=== PATIENT | male | born 1990 | race African-American/Black ===

== ENCOUNTER 2021-06-27 08:59 | Emergency (ER) | payer MEDICAID ==
[~2021-06-27] VITALS: Ht 175.3 cm; Wt 79.5 kg
[2021-06-27 09:18] VITALS: BP 154/89
== END 2021-06-27 10:37 | disposition home or self-care (01) ==
LOC: EMS 08:59
DX: S62.314A Displaced fracture of base of fourth metacarpal bone, right hand, initial encounter for closed fracture (principal); Y04.0XXA Assault by unarmed brawl or fight, initial encounter; Y93.89 Activity, other specified; Y92.89 Other specified places as the place of occurrence of the external cause; Y99.8 Other external cause status
CPT/HCPCS: 99283

== ENCOUNTER 2024-03-07 11:48 | Emergency (ER) | payer MEDICAID ==
[~2024-03-07] VITALS: Ht 172.7 cm; Wt 79.5 kg
[2024-03-07 11:50] VITALS: TEMP 98.3
[2024-03-07] MEDS: IBUPROFEN 600 MG TABLET PO ONE (13:46)
[2024-03-07] MEDS ORDERED: METH-659 PO (14:20)
[2024-03-07] MEDS ORDERED: IBUP-1554 PO (14:20)
[2024-03-07] MEDS ORDERED: HYDR-4062 PO (14:20)
[2024-03-07] MEDS: METHOCARBAMOL 500 MG TABLET PO ONE (14:31)
[2024-03-07 14:38] VITALS: BP 121/68; PULSE 71; RESP 16
== END 2024-03-07 14:38 | disposition home or self-care (01) ==
LOC: EMS 11:48
DX: S39.012A Strain of muscle, fascia and tendon of lower back, initial encounter (principal); S30.0XXA Contusion of lower back and pelvis, initial encounter; J45.909 Unspecified asthma, uncomplicated; F17.210 Nicotine dependence, cigarettes, uncomplicated; V89.2XXA Person injured in unspecified motor-vehicle accident, traffic, initial encounter; Y93.89 Activity, other specified; Y92.89 Other specified places as the place of occurrence of the external cause; Y99.8 Other external cause status
CPT/HCPCS: 72070; 72100; 99284; Z7502; Z7610

== ENCOUNTER → 2024-05-29 | Emergency (ER) | payer MEDICAID ==
[~2024-05-29] VITALS: Ht 172.7 cm; Wt 79.5 kg
[~2024-05-29] MED LIST: HYDR-4062 PO; IBUP-1554 PO; METH-659 PO
[2024-05-29 22:35] VITALS: BP 126/98; PULSE 60; RESP 16; TEMP 98.9
[2024-05-29 23:21] LABS: BASOPHILS % (AUTO) 0.5 % (0.0-2.0); EOSINOPHILS % (AUTO) 1.4 % (1.0-6.0); HEMOGLOBIN 15.4 g/dL (13.5-17.5); LYMPHOCYTES # (AUTO) 2.3 K/uL (1.0-4.8); LYMPHOCYTES % (AUTO) 28.3 % (22.0-44.0); MEAN CORPUSCULAR HEMOGLOBIN 28.4 pg (26.0-34.0); MEAN CORPUSCULAR HGB CONC 32.7 G/dL (31.0-37.0); MEAN CORPUSCULAR VOLUME 87 fL (80-100); MONOCYTES # (AUTO) 0.4 K/uL (0.1-1.0); MONOCYTES % (AUTO) 4.6 % (2.0-9.0); NEUTROPHILS # (AUTO) 5.2 K/uL (1.8-7.7); NEUTROPHILS % (AUTO) 65.2 % (40.0-70.0); PLATELET COUNT (AUTO) 204 K/uL (150-450); RED CELL DISTRIBUTION WIDTH 15.8 % (11.5-14.5); WHITE BLOOD COUNT (AUTO) 7.9 K/uL (4.5-11.0)
[2024-05-29 23:28] LABS: ANION GAP 6 mmol/L (8-16); CALCIUM, TOTAL 8.8 mg/dL (8.8-10.5); CARBON DIOXIDE 29 mmol/L (22-29); CHLORIDE 103 mmol/L (98-107); CREATININE 1.08 mg/dL (0.60-1.30); GLOMERULAR FILTR. RATE CALC > 60 mL/min (>60); GLUCOSE,RANDOM 90 mg/dL (70-110); POTASSIUM 4.1 mmol/L (3.5-5.1); SODIUM SERUM 138 mmol/L (136-145); UREA NITROGEN, BLOOD 11 mg/dL (7-18)
[2024-05-29 23:29] LABS: LIPASE 44 U/L (16-77)
== END | disposition still patient (30) ==
LOC: EMS 22:23
DX: R10.84 Generalized abdominal pain (principal); R51.9 Headache, unspecified; R53.81 Other malaise; Z53.21 Procedure and treatment not carried out due to patient leaving prior to being seen by health care provider
CPT/HCPCS: 80048; 83690; 85025

== ENCOUNTER 2024-09-02 08:29 | Emergency (ER) | payer OTHER, MEDICAID ==
[~2024-09-02] VITALS: Ht 172.7 cm; Wt 79.0 kg
[2024-09-02 08:45] VITALS: TEMP 98
[2024-09-02] MEDS: ACETAMINOPHEN 500 MG TABLET PO ONE (12:26)
[2024-09-02] MEDS ORDERED: ACET-2247 PO (12:38)
[2024-09-02 12:51] VITALS: BP 126/74; PULSE 64; RESP 18; O2SAT 98
== END 2024-09-02 13:09 | disposition home or self-care (01) ==
LOC: EDUNIT# 08:29 → EMS 08:36
DX: S63.91XA Sprain of unspecified part of right wrist and hand, initial encounter (principal); J45.909 Unspecified asthma, uncomplicated; F17.210 Nicotine dependence, cigarettes, uncomplicated; W22.09XA Striking against other stationary object, initial encounter; Y93.89 Activity, other specified; Y92.89 Other specified places as the place of occurrence of the external cause; Y99.8 Other external cause status
CPT/HCPCS: 99283

== ENCOUNTER 2025-01-19 10:57 | Emergency (ER) | payer OTHER, MEDICAID ==
[~2025-01-19] VITALS: Ht 172.7 cm; Wt 81.8 kg
[~2025-01-19 10:57] MED LIST changes: +ACET-2247 PO
[2025-01-19 11:14] VITALS: PULSE 64; TEMP 97.6
[2025-01-19] MEDS: LIDOCAINE 1%/EPI 1:200,000/PF 10 ML VIAL PERC ONE (13:13)
[2025-01-19] MEDS ORDERED: VALA500T34 PO (13:13)
[2025-01-19] MEDS: POVIDONE-IODINE 10% 15 ML SOLUTION UD TP ONE (13:13)
[2025-01-19] MEDS ORDERED: CEPH-558 PO (14:07)
[2025-01-19 14:27] VITALS: BP 116/65; RESP 18; O2SAT 97
== END 2025-01-19 14:38 | disposition home or self-care (01) ==
LOC: EMS 11:00
DX: S20.212A Contusion of left front wall of thorax, initial encounter (principal); J45.909 Unspecified asthma, uncomplicated; F17.210 Nicotine dependence, cigarettes, uncomplicated; Z79.624 Long term (current) use of inhibitors of nucleotide synthesis; Z72.89 Other problems related to lifestyle; X58.XXXA Exposure to other specified factors, initial encounter; Y93.89 Activity, other specified; Y92.89 Other specified places as the place of occurrence of the external cause; Y99.8 Other external cause status
CPT/HCPCS: 10060; 10160; 99283; 99284; J3490